=== PATIENT | female | born 1980 | race Caucasian/White ===

== ENCOUNTER 2016-06-09 22:36 | Emergency (ER) | payer OTHER ==
[2016-06-09 22:40] VITALS: BP 139/92
[2016-06-09 23:23] LABS: Hematocrit 46 % (35-47); Hemoglobin 15.4 g/dl (12.0-16.0); Mean Corpuscular HGB Conc 34 g/dl (31-36); Mean Corpuscular Hemoglobin 29 pg (27-31); Mean Corpuscular Volume 87 fL (80-97); Mean Platelet Volume 8 um3 (7.4-10.4); Red Blood Count 5.26 10^6/ul (4.0-5.4); Red Cell Distribution Width 13 % (10.5-15); White Blood Count 12.9 10^3/ul (3.5-10.8)
[2016-06-09 23:27] LABS: Urine Bacteria Absent (Absent); Urine Bilirubin Negative (Negative); Urine Glucose Negative (Negative); Urine Nitrite Negative (Negative)
[2016-06-09] MEDS ORDERED: Nicotine Inhaler* 10 MG AMP INH ONE (23:38)
[2016-06-09 23:40] LABS: ALT 9 U/L (7-52); AST 14 U/L (13-39); Albumin 4.6 g/dL (3.2-5.2); Alkaline Phosphatase 72 U/L (34-104); Anion Gap 8 mmol/L (2-11); Blood Urea Nitrogen 12 mg/dL (6-24); CO2 Carbon Dioxide 24 mmol/L (22-32); Calcium 9.8 mg/dL (8.6-10.3); Chloride 104 mmol/L (101-111); EGFR Non-African American 81.6 (>60); Globulin 3.6 g/dL (2-4); Glucose 114 mg/dL (70-100); Sodium 136 mmol/L (133-145); Total Protein 8.2 g/dL (6.4-8.9)
[2016-06-09 23:42] LABS: Benzodiazepine Urine Screen None Detected (None Detect)
[2016-06-09] MEDS ORDERED: Mouth Piece, Nicotine* 1 EACH CARTRIDGE ONE (23:45)
[2016-06-10 00:06] LABS: Acetaminophen < 15 mcg/mL; Alcohol < 10 mg/dL (<10); Salicylate < 2.50 mg/dL (<30)
[2016-06-10 00:17] LABS: TSH (Thyroid Stimulating Horm) 0.92 mcIU/mL (0.34-5.60)
--- NOTE | 2016-06-10 21:17 | ED ---
Reynaldo Barlow Billy, scribed for Rodolfo Lindsay MD on 06/09/16 at 2352 . Psychiatric Complaint - HPI Summary HPI Summary: Patient is a 36 year-old female coming to [facility] after she was seen putting a sheet around her neck in the skilled nursing cell. She states that she did so in order to get attention from the staff at the skilled nursing because she wanted to leave her cell; she was "going crazy in that cell." She denies any SI or HI at all. She has a history of anxiety, but denies any previous suicidal attempts. Former heroin use. - History Of Current Complaint Chief Complaint: EDMentalHealth Time Seen by Provider: 06/09/16 22:55 Hx Obtained From: Patient Hx Last Menstrual Period: IUD Timing: Constant Severity Currently: None Aggravating Factor(s): Nothing Alleviating Factor(s): Nothing Associated Signs And Symptoms: Positive: Negative Related History: Positive For: Prior Psychiatric Issues Has Suicidal: Denies: Thoughts, With A Plan Has Homicidal: Denies: Thoughts, With A Plan - Allergies/Home Medications Allergies/Adverse Reactions: Allergies Allergy/AdvReac Type Severity Reaction Status Date / Time Pregabalin [From Lyrica] Allergy Severe See Comment Verified 06/09/16 22:42 Celecoxib [From Celebrex] Allergy Intermediate See Comment Verified 06/09/16 22: 42 CI Pigment Blue 63 Allergy Intermediate See Comment Verified 06/09/16 22:42 [From Cymbalta] Duloxetine [From Cymbalta] Allergy Intermediate See Comment Verified 06/09/16 22 :42 Latex Allergy Intermediate HIVES IN Verified 06/09/16 22:42 AREA LATEX TOUCHES Morphine Allergy Mild Unknown Verified 06/09/16 22:42 Reaction Details CILLINS Allergy Mild Fever Uncoded 06/09/16 22:42 PMH/Surg Hx/FS Hx/Imm Hx Endocrine/Hematology History: Denies: Hx Diabetes, Hx Thyroid Disease Cardiovascular History: Reports: Hx Hypertension Denies: Hx Pacemaker/ICD Respiratory History: Reports: Hx Asthma, Other Respiratory Problems/Disorders - sob Denies: Hx Chronic Obstructive Pulmonary Disease (COPD) GI History: Denies: Hx Ulcer History: Denies: Hx Renal Disease Musculoskeletal History: Reports: Other Musculoskeletal History - scoliosis, fibromyalgia Sensory History: Denies: Hx Hearing Aid Neurological History: Denies: Hx Dementia, Hx Seizures Psychiatric History: Reports: Hx Panic Disorder Denies: Hx Substance Abuse - Cancer History Cancer Type, Location and Year: Cervical CA - Surgical History Surgery Procedure, Year, and Place: Cervical CA surgery. *MIRENA 3t* Infectious Disease History: No Infectious Disease History: Denies: Hx Clostridium Difficile, Hx Hepatitis, Hx Human Immunodeficiency Virus (HIV), History Other Infectious Disease, Traveled Outside the [place] in Last 30 Days - Family History Family History: Family history is significant for OCD. - Social History Alcohol Use: None Substance Use Type: Reports: Heroin - formerly, Marijuana, Prescribed Type: Cigarettes Amount Used/How Often: 1/2-1 PPD Review of Systems Negative: Fever, Chills Negative: Erythema Negative: Sore Throat Negative: Chest Pain Negative: Shortness Of Breath, Cough Negative: Vomiting, Nausea Negative: dysuria, hematuria Negative: Myalgia, Edema Negative: Rash All Other Systems Reviewed And Are Negative: Yes Physical Exam - Summary Physical Exam Summary: Constitutional: Well-developed, Well-nourished, Alert. (-) Distressed Skin: Warm, Dry HENT: Normocephalic; Atraumatic Eyes: Conjunctiva normal Neck: Musculoskeletal ROM normal neck. No ligature hopkins. (-) JVD, (-) Stridor, (-) Tracheal deviation Cardio: Rhythm regular, rate normal, Heart sounds normal; Intact distal pulses; The pedal pulses are 2+ and symmetric. Radial pulses are 2+ and symmetric. (-) Murmur Pulmonary/Chest wall: Effort normal. (-) Respiratory distress, (-) Wheezes, (-) Rales Abd: Soft, (-) Tenderness, (-) Distension, (-) Guarding, (-) Rebound Musculoskeletal: (-) Edema Lymph: (-) Cervical adenopathy Neuro: Alert, Oriented x3 Psych: Mood and affect Normal Triage Information Reviewed: Yes Vital Signs On Initial Exam: Initial Vitals Temp Pulse Resp BP Pulse Ox 97.1 F 76 16 139/92 100 06/09/16 22:37 06/09/16 22:37 06/09/16 22:37 06/09/16 22:37 06/09/16 22:37 Vital Signs Reviewed: Yes Diagnostics - Vital Signs Vital Signs Temp Pulse Resp BP Pulse Ox 06/09/16 22:40 97.1 F 72 15 139/92 100 06/09/16 22:37 97.1 F 76 16 139/92 100 - Laboratory Lab Results: Lab Results 06/09/16 06/09/16 06/09/16 Range/Units 23:00 23:10 23:10 WBC 12.9 H (3.5-10.8) 10^3/ul RBC 5.26 (4.0-5.4) 10^6/ul Hgb 15.4 (12.0-16.0) g/dl Hct 46 (35-47) % MCV 87 (80-97) fL MCH 29 (27-31) pg MCHC 34 (31-36) g/dl RDW 13 (10.5-15) % Plt Count 233 (150-450) 10^3/ul MPV 8 (7.4-10.4) um3 Neut % (Auto) 63.4 (38-83) % Lymph % (Auto) 24.9 L (25-47) % Power % (Auto) 9.3 H (1-9) % Eos % (Auto) 1.4 (0-6) % Baso % (Auto) 1.0 (0-2) % Absolute Neuts (auto) 8.2 H (1.5-7.7) 10^3/ul Absolute Lymphs (auto) 3.2 (1.0-4.8) 10^3/ul Absolute Monos (auto) 1.2 H (0-0.8) 10^3/ul Absolute Eos (auto) 0.2 (0-0.6) 10^3/ul Absolute Basos (auto) 0.1 (0-0.2) 10^3/ul Absolute Nucleated RBC 0 10^3/ul Nucleated RBC % 0 Sodium 136 (133-145) mmol/L Potassium 4.0 (3.5-5.0) mmol/L Chloride 104 (101-111) mmol/L Carbon Dioxide 24 (22-32) mmol/L Anion Gap 8 (2-11) mmol/L BUN 12 (6-24) mg/dL Creatinine 0.80 (0.51-0.95) mg/dL Est GFR ( Amer) 105.0 (>60) Est GFR (Non-Af Amer) 81.6 (>60) BUN/Creatinine Ratio 15.0 (8-20) Glucose 114 H (70-100) mg/dL Calcium 9.8 (8.6-10.3) mg/dL Total Bilirubin 0.50 (0.2-1.0) mg/dL AST 14 (13-39) U/L ALT 9 (7-52) U/L Alkaline Phosphatase 72 (34-104) U/L Total Protein 8.2 (6.4-8.9) g/dL Albumin 4.6 (3.2-5.2) g/dL Globulin 3.6 (2-4) g/dL Albumin/Globulin Ratio 1.3 (1-3) TSH Pending Urine Color Yellow Urine Appearance Cloudy Urine pH 6.0 (5-9) Ur Specific [place] 1.014 (1.010-1.030) Urine Protein Negative (Negative) Urine Ketones Negative (Negative) Urine Blood Negative (Negative) Urine Nitrate Negative (Negative) Urine Bilirubin Negative (Negative) Urine Urobilinogen Negative (Negative) Ur Leukocyte Esterase 3+ H (Negative) Urine WBC (Auto) 2+(11-20/hpf) H (Absent) Urine RBC (Auto) 2+(6-10/hpf) H (Absent) Ur Squamous Epith Cells Present H (Absent) Urine Bacteria Absent (Absent) Urine Glucose Negative (Negative) Salicylates Pending Urine Opiates Screen (None Detect) Acetaminophen Pending Ur Barbiturates Screen (None Detect) Ur Phencyclidine Scrn (None Detect) Ur Amphetamines Screen (None Detect) U Benzodiazepines Scrn (None Detect) Urine Cocaine Screen (None Detect) U Cannabinoids Screen (None Detect) Serum Alcohol Pending 06/09/16 Range/Units 23:10 WBC (3.5-10.8) 10^3/ul RBC (4.0-5.4) 10^6/ul Hgb (12.0-16.0) g/dl Hct (35-47) % MCV (80-97) fL MCH (27-31) pg MCHC (31-36) g/dl RDW (10.5-15) % Plt Count (150-450) 10^3/ul MPV (7.4-10.4) um3 Neut % (Auto) (38-83) % Lymph % (Auto) (25-47) % Power % (Auto) (1-9) % Eos % (Auto) (0-6) % Baso % (Auto) (0-2) % Absolute Neuts (auto) (1.5-7.7) 10^3/ul Absolute Lymphs (auto) (1.0-4.8) 10^3/ul Absolute Monos (auto) (0-0.8) 10^3/ul Absolute Eos (auto) (0-0.6) 10^3/ul Absolute Basos (auto) (0-0.2) 10^3/ul Absolute Nucleated RBC 10^3/ul Nucleated RBC % Sodium (133-145) mmol/L Potassium (3.5-5.0) mmol/L Chloride (101-111) mmol/L Carbon Dioxide (22-32) mmol/L Anion Gap (2-11) mmol/L BUN (6-24) mg/dL Creatinine (0.51-0.95) mg/dL Est GFR ( Amer) (>60) Est GFR (Non-Af Amer) (>60) BUN/Creatinine Ratio (8-20) Glucose (70-100) mg/dL Calcium (8.6-10.3) mg/dL Total Bilirubin (0.2-1.0) mg/dL AST (13-39) U/L ALT (7-52) U/L Alkaline Phosphatase (34-104) U/L Total Protein (6.4-8.9) g/dL Albumin (3.2-5.2) g/dL Globulin (2-4) g/dL Albumin/Globulin Ratio (1-3) TSH Urine Color Urine Appearance Urine pH (5-9) Ur Specific Charlotte (1.010-1.030) Urine Protein (Negative) Urine Ketones (Negative) Urine Blood (Negative) Urine Nitrate (Negative) Urine Bilirubin (Negative) Urine Urobilinogen (Negative) Ur Leukocyte Esterase (Negative) Urine WBC (Auto) (Absent) Urine RBC (Auto) (Absent) Ur Squamous Epith Cells (Absent) Urine Bacteria (Absent) Urine Glucose (Negative) Salicylates Urine Opiates Screen None detected (None Detect) Acetaminophen Ur Barbiturates Screen None detected (None Detect) Ur Phencyclidine Scrn None detected (None Detect) Ur Amphetamines Screen None detected (None Detect) U Benzodiazepines Scrn None detected (None Detect) Urine Cocaine Screen None detected (None Detect) U Cannabinoids Screen None detected (None Detect) Serum Alcohol Result Diagrams: 06/09/16 23:10 06/09/16 23:10 Lab Statement: Any lab studies that have been ordered have been reviewed, and results considered in the medical decision making process. Course/Dx - Course Assessment/Plan: Medically clear for MHE at 2351. - Differential Dx/Clinical Impression Provider Diagnosis: Malingering, Adjustment disorder Discharge - Discharge Plan Condition: Fair Disposition: HOME Referrals: Aracelis Correa MD [Primary Care Provider] - The documentation as recorded by the Reynaldo copeland Billy accurately reflects the service I personally performed and the decisions made by , Rodolfo Lindsay MD.
== END 2016-06-10 02:34 | disposition home or self-care (01) ==
LOC: ED 22:36
DX: F43.20 Adjustment disorder, unspecified (principal); Z76.5 Malingerer [conscious simulation]
CPT/HCPCS: 36415; 80053; 80307; 80320; 80329; 81003; 81015; 84443; 85025; 87086; 99285; A9270-GY; G0480

== ENCOUNTER 2016-06-20 23:37 | Emergency (ER) | payer OTHER ==
[2016-06-21] MEDS ORDERED: Nicotine Inhaler* 10 MG AMP INH ONE (01:47)
[2016-06-21] MEDS ORDERED: Mouth Piece, Nicotine* 1 EACH CARTRIDGE INH ONE (01:47)
[2016-06-21] MEDS ORDERED: Ibuprofen TAB* 600 MG PO ONE (01:47)
[2016-06-21] MEDS ORDERED: LoraTADine TAB(NF) 10 MG TAB (AUTOSUB CETIRIRIZINE) PO ONE (01:48)
--- NOTE | 2016-06-21 02:44 | ED ---
Throat Pain/Nasal Congestion - HPI Summary HPI Summary: Patient arrives from [facility] with CC of left ear pain and fullness and throat pain x 1 week. She states the onset was at [facility] and feels it is allergy related. She denies previous EENT problems or history. She denies other environmental or seasonal allergies. She takes gabapentin daily and feels she needs an allergy medication as well. Denies SOB, chest pressure or pain. She is also requesting a nicotine puffer. - History of Current Complaint Chief Complaint: EDThroatPain Time Seen by Provider: 06/21/16 01:22 Hx Obtained From: Patient Onset/Duration: Sudden Onset Severity: Moderate Associated Signs And Symptoms: Positive: Negative - Epiglottits Risk Factors Epiglottis Risk Factors: Negative - Allergies/Home Medications Allergies/Adverse Reactions: Allergies Allergy/AdvReac Type Severity Reaction Status Date / Time Pregabalin [From Lyrica] Allergy Severe See Comment Verified 06/21/16 00:00 Celecoxib [From Celebrex] Allergy Intermediate See Comment Verified 06/21/16 00: 00 CI Pigment Blue 63 Allergy Intermediate See Comment Verified 06/21/16 00:00 [From Cymbalta] Duloxetine [From Cymbalta] Allergy Intermediate See Comment Verified 06/21/16 00 :00 Latex Allergy Intermediate HIVES IN Verified 06/21/16 00:00 AREA LATEX TOUCHES Morphine Allergy Mild Unknown Verified 06/21/16 00:00 Reaction Details CILLINS Allergy Mild Fever Uncoded 06/09/16 22:42 PMH/Surg Hx/FS Hx/Imm Hx Previously Healthy: Yes Endocrine/Hematology History: Denies: Hx Diabetes, Hx Thyroid Disease Cardiovascular History: Reports: Hx Hypertension Denies: Hx Pacemaker/ICD Respiratory History: Reports: Hx Asthma, Other Respiratory Problems/Disorders - sob Denies: Hx Chronic Obstructive Pulmonary Disease (COPD) GI History: Denies: Hx Ulcer History: Denies: Hx Renal Disease Musculoskeletal History: Reports: Other Musculoskeletal History - scoliosis, fibromyalgia Sensory History: Denies: Hx Hearing Aid Neurological History: Denies: Hx Dementia, Hx Seizures Psychiatric History: Reports: Hx Panic Disorder Denies: Hx Eating Disorder, Hx of Violent Episodes Against Others, Hx Substance Abuse - Cancer History Cancer Type, Location and Year: Cervical CA - Surgical History Surgery Procedure, Year, and Place: Cervical CA surgery. *MIRENA 3t* - Immunization History Hx Pertussis Vaccination: No Immunizations Up to Date: No Infectious Disease History: No Infectious Disease History: Denies: Hx Clostridium Difficile, Hx Hepatitis, Hx Human Immunodeficiency Virus (HIV), History Other Infectious Disease, Traveled Outside the [place] in Last 30 Days - Family History Family History: Family history is significant for OCD. - Social History Alcohol Use: None Substance Use Type: Reports: Heroin, Marijuana, Prescribed Smoking Status (MU): Current Every Day Smoker Type: Cigarettes Amount Used/How Often: 1/2-1 PPD Review of Systems Constitutional: Negative Eyes: Negative Positive: Sore Throat, Ear Ache Cardiovascular: Negative Respiratory: Negative Positive: no symptoms reported, see HPI Musculoskeletal: Negative Skin: Negative Psychological: Normal All Other Systems Reviewed And Are Negative: Yes Physical Exam Triage Information Reviewed: Yes Vital Signs On Initial Exam: Initial Vitals Temp Pulse Resp BP Pulse Ox 98.3 F 88 18 128/75 98 06/20/16 23:58 06/20/16 23:58 06/20/16 23:58 06/20/16 23:58 06/20/16 23:58 Completion Of Physical Exam Limited Due To: Dementia Appearance: Positive: Well-Appearing, Well-Nourished Skin: Positive: Warm, Skin Color Reflects Adequate Perfusion Head/Face: Positive: Normal Head/Face Inspection Eyes: Positive: EOMI, PETTY, Conjunctiva Clear ENT: Positive: Pharynx normal, TMs normal Neck: Positive: Supple, No Lymphadenopathy Respiratory/Lung Sounds: Positive: Clear to Auscultation, Breath Sounds Present Cardiovascular: Positive: Normal, RRR Musculoskeletal: Positive: Normal, Strength/ROM Intact Neurological: Positive: Normal, Sensory/Motor Intact, Alert, Oriented to Person Place, Time, Speech Normal Psychiatric: Positive: Normal AVPU Assessment: Alert - Rubi Coma Scale Best Eye Response: 4 - Spontaneous Best Motor Response: 6 - Obeys Commands Best Verbal Response: 5 - Oriented Diagnostics - Vital Signs Vital Signs Temp Pulse Resp BP Pulse Ox 06/20/16 23:58 98.3 F 88 18 128/75 98 - Laboratory Lab Results: Lab Results 06/20/16 Range/Units 23:15 Group A Strep Rapid Negative (Negative) Lab Statement: Any lab studies that have been ordered have been reviewed, and results considered in the medical decision making process. EENT Course/Dx - Course Course Of Treatment: Patient given zyrtec and ibuprofen and nicotine puffer. Patient prescribed ibuprofen and zyrtec at [facility]. Physical exam benign. - Differential Diagnoses Differential Diagnoses: Otitis Externa, Otitis Media, Pain of Unknown Etiology, Pharyngitis - Diagnoses Provider Diagnoses: Ear pain Discharge - Discharge Plan Condition: Stable Disposition: HOME Prescriptions: Cetirizine* [ZyrTEC 10 MG TAB*] 10 mg PO DAILY #15 tab MDD 1 Ibuprofen TAB* [Motrin TAB* 600 MG] 600 mg PO Q8H PRN #21 tab MDD 3 PRN Reason: Pain Patient Education Materials: Cetirizine (By mouth) Referrals: No Primary Care Phys,NOPCP [Primary Care Provider] - Additional Instructions: Take Ibuprofen 600mg three times daily as needed for pain Certrizine once daily for 15 days.
[2016-06-21] MEDS ORDERED: diPHENhydraMINE PO* 25 MG PO ONE (02:54)
[2016-06-21] MEDS ORDERED: diPHENhydraMINE PO* 25 MG ONE (02:55)
[2016-06-21 03:16] VITALS: BP 125/70
[2016-06-21] MEDS ORDERED: Cetirizine* 10 MG TAB PO SCH (09:00)
== END 2016-06-21 03:00 | disposition home or self-care (01) ==
LOC: ED 23:37
DX: H92.02 Otalgia, left ear (principal); I10 Essential (primary) hypertension; J45.909 Unspecified asthma, uncomplicated; F41.0 Panic disorder [episodic paroxysmal anxiety]; F17.210 Nicotine dependence, cigarettes, uncomplicated
CPT/HCPCS: 87651; 99282; A9270-GY

== ENCOUNTER 2016-09-21 09:51 | Emergency (ER) | payer OTHER | END 2016-09-21 11:15 | disposition left against medical advice (07) | LOC: UCEAST 09:51 | DX: H92.09 Otalgia, unspecified ear (principal); Z53.21 Procedure and treatment not carried out due to patient leaving prior to being seen by health care provider ==

== ENCOUNTER 2016-12-18 12:14 | Emergency (ER) | payer OTHER ==
[2016-12-18] MEDS ORDERED: Ibuprofen TAB* 400 MG PO ONE (14:46)
--- NOTE | 2016-12-18 14:52 | RAD ---
Indication: Right ankle injury. 3 views of the right ankle demonstrates no fracture. Ankle mortise is intact. IMPRESSION: No fracture of the right ankle is noted.
--- NOTE | 2016-12-18 14:54 | RAD ---
INDICATION: Right foot injury COMPARISON: None TECHNIQUE: AP, lateral, and oblique views were obtained. FINDINGS: There are cortical irregularities of the first cuneiform suspicious for a fracture. Suggest CT imaging. The bony structures, joint spaces, and soft tissues are otherwise normal. IMPRESSION: POSSIBLE FRACTURE OF THE FIRST CUNEIFORM. SUGGEST CT IMAGING.
[2016-12-18 14:58] VITALS: BP 153/97
--- NOTE | 2016-12-18 15:32 | RAD ---
INDICATION: Possible foot fracture COMPARISON: Right foot December 18, 2016 TECHNIQUE: 56 noncontrast axial scans of the foot were acquired followed by coronal and sagittal reconstructions. FINDINGS: There is no acute fracture. There is mild contour irregularity involving the first cuneiform which is developmental and not related to any acute injury. There are probable ossicles about the tarsal navicular. The articular relationships and soft tissues are normal. IMPRESSION: NO ACUTE FRACTURE.
--- NOTE | 2016-12-18 16:35 | UC ---
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 - History of Current Complaint Chief Complaint: UCTrauma Stated Complaint: R ANKLE PAIN Time Seen by Provider: 12/18/16 13:42 Hx Obtained From: Patient, Family/[employer] Hx Last Menstrual Period: no periods - states mirena Onset/Duration: Sudden Onset, Lasting Hours Severity Initially: Mild Severity Currently: Mild Aggravating Factor(s): Standing Able to Bear Weight: No - Risk Factors Gout Risk Factors: Negative DVT Risk Factors: Negative Septic Arthritis Risk Factor: Negative - Allergies/Home Medications Allergies/Adverse Reactions: Allergies Allergy/AdvReac Type Severity Reaction Status Date / Time Pregabalin [From Lyrica] Allergy Severe See Comment Verified 12/18/16 12:49 Celecoxib [From Celebrex] Allergy Intermediate See Comment Verified 12/18/16 12: 49 CI Pigment Blue 63 Allergy Intermediate See Comment Verified 12/18/16 12:49 [From Cymbalta] Duloxetine [From Cymbalta] Allergy Intermediate See Comment Verified 12/18/16 12 :49 Latex Allergy Intermediate HIVES IN Verified 12/18/16 12:49 AREA LATEX TOUCHES Morphine Allergy Mild Unknown Verified 12/18/16 12:49 Reaction Details CILLINS Allergy Mild Fever Uncoded 12/18/16 12:49 Home Medications: Home Medications Amlodipine Besylate [Norvasc 5 mg tab] 5 mg PO DAILY 12/18/16 [History Confirmed 12/18/16] Clonidine HCl [Catapres 0.1 MG TAB] 0.1 mg PO PRN 12/18/16 [History] Gabapentin CAP(*) [Neurontin 300 CAP(*)] 600 mg PO TID 12/18/16 [History Confirmed 12/18/16] Metaxalone TAB* [Skelaxin TAB*] 800 mg PO TID 12/18/16 [History Confirmed ] Omeprazole CAP* [Prilosec CAP* 20 MG] 20 mg PO DAILY 12/18/16 [History Confirmed 12/18/16] Quetiapine Fumarate [Quetiapine Fumarate ER] 50 mg PO 12/18/16 [History] PMH/Surg Hx/FS Hx/Imm Hx Previously Healthy: Yes - Surgical History Surgical History: Yes Surgery Procedure, Year, and Place: Cervical CA surgery. *MIRENA 3t* - Family History Known Family History: Negative: Other - NO JOINT LAXITY Family History: Family history is significant for OCD. - Social History Occupation: Employed Full-time Lives: With Family Alcohol Use: None Substance Use Type: None Smoking Status (MU): Current Every Day Smoker Type: Cigarettes Amount Used/How Often: 1/2-1 PPD Cessation Counseling: Patient Advised to Stop - Immunization History Most Recent Tetanus Shot: 2008 Review of Systems Constitutional: Negative Skin: Negative Eyes: Negative ENT: Negative Respiratory: Negative Cardiovascular: Negative Gastrointestinal: Negative Genitourinary: Negative Motor: Negative Neurovascular: Negative Musculoskeletal: Arthralgia, Decreased ROM, Edema, Myalgia Neurological: Negative Psychological: Negative Is Patient Immunocompromised?: No All Other Systems Reviewed And Are Negative: Yes Physical Exam Triage Information Reviewed: Yes Appearance: Well-Appearing, No Pain Distress, Well-Nourished Vital Signs: Initial Vital Signs Temp 98.5 F 12/18/16 12:53 Pulse 92 12/18/16 12:53 Resp 18 12/18/16 12:53 BP 149/83 12/18/16 12:53 Pulse Ox 99 12/18/16 12:53 Vital Signs Reviewed: Yes Eye Exam: Normal ENT Exam: Normal ENT: Positive: Normal ENT inspection, Hearing grossly normal, TMs normal Dental Exam: Normal Neck exam: Normal Neck: Positive: Supple, Nontender, No Lymphadenopathy Respiratory Exam: Normal Respiratory: Positive: Chest non-tender, Lungs clear, Normal breath sounds, No respiratory distress, No accessory muscle use Cardiovascular Exam: Normal Cardiovascular: Positive: RRR, No Murmur, Pulses Normal Abdominal Exam: Normal Abdomen Description: Positive: Nontender, No Organomegaly Musculoskeletal: Positive: Strength Limited @ - RIGHT ANKLE, ROM Limited @ - RIGHT ANKLE, Edema @ - RIGHT ANKLE/RIGHT HEEL Neurological Exam: Normal Psychological Exam: Normal Skin Exam: Normal Lower Extremity Course/Dx - Differential Dx/Diagnosis Differential Diagnosis/HQI/PQRI: Fracture (Closed), Fracture (Open), Sprain, Strain Provider Diagnoses: RIGHT ANKLE SPRAIN; RIGHT FOOT CONTUSION/SPRAIN Discharge - Discharge Plan Condition: Stable Disposition: HOME Patient Education Materials: Ankle Sprain (ED), Foot Contusion (ED), Foot Sprain (ED) Referrals: [facility] [Outside] Phyllis Bruno MD [Medical Doctor] - Bonnie WALSH,Keya Pfeiffer [Primary Care Provider] - Additional Instructions: PHYSICAL THERAPY REFERRAL: You have been prescribed physical therapy. Treatments may include stretching, exercise, application of heat or cold, and other modalities. After an injury, PT can reduce swelling and pain. In recovery, PT is used to restore mobility and strength. Your specific treatment goals are: ___X__ Reduction of Swelling (EGS, US, ice as needed) __X___ Pain Reduction (EGS, US, ice as needed) ___X__ TENS Pack Fitting and Instruction Wound Hydrotherapy ___X__ Preservation of Mobility ___X__ Restorationism of Mobility ___X__ Strength Restorationism ___X__ Work or Sports Hardening This instruction sheet also serves as your PHYSICAL THERAPY REFERRAL! Please take it with you to the therapist, so he/she will be aware of your diagnosis and treatment plan. You may see the physical therapist of your choice for these treatments, but may wish to check with your insurance to be sure the provider you select is covered. It's important to see the doctor to whom you have been referred for follow up.
== END 2016-12-18 16:15 | disposition home or self-care (01) ==
LOC: UCEAST 12:14
DX: S93.401A Sprain of unspecified ligament of right ankle, initial encounter (principal); F17.210 Nicotine dependence, cigarettes, uncomplicated; W01.0XXA Fall on same level from slipping, tripping and stumbling without subsequent striking against object, initial encounter; Y92.9 Unspecified place or not applicable; S93.601A Unspecified sprain of right foot, initial encounter; S90.31XA Contusion of right foot, initial encounter
CPT/HCPCS: 99214; A9270-GY; G0463

== ENCOUNTER 2017-01-11 18:39 | Emergency (ER) | payer OTHER ==
[2017-01-11 19:28] VITALS: BP 127/72
== END 2017-01-11 21:48 | disposition left against medical advice (07) ==
LOC: ED 18:39
DX: M54.9 Dorsalgia, unspecified (principal); Z53.21 Procedure and treatment not carried out due to patient leaving prior to being seen by health care provider
CPT/HCPCS: 93005

== ENCOUNTER 2018-07-04 16:42 | Emergency (ER) | payer SELFPAY ==
[2018-07-04 20:21] LABS: ABS Basophils 0.1 10^3/ul (0-0.2); ABS Eosinophils 0.2 10^3/ul (0-0.6); ABS Lymphocytes 3.7 10^3/ul (1.0-4.8); ABS Monocytes 0.8 10^3/ul (0-0.8); ABS Neutrophils 7.5 10^3/ul (1.5-7.7); Hematocrit 46 % (35-47); Hemoglobin 15.9 g/dL (12.0-16.0); Lymphocyte % 29.9 %; Mean Corpuscular HGB Conc 35 g/dL (31-36); Mean Corpuscular Hemoglobin 31 pg (27-31); Mean Corpuscular Volume 89 fL (80-97); Mean Platelet Volume 7.5 fL (7.4-10.4); Nucleated Red Blood Cells % 0.1; Platelet Count 292 10^3/uL (150-450); Red Blood Count 5.14 10^6 /uL (3.70-4.87); Red Cell Distribution Width 13 % (10.5-15); White Blood Count 12.2 10^3/uL (3.5-10.8)
[2018-07-04 20:41] LABS: ALT 15 U/L (7-52); Albumin/Globulin Ratio 1.7 (1-3); Alkaline Phosphatase 78 U/L (34-104); BUN/Creatinine Ratio 10.4 (8-20); Blood Urea Nitrogen 10 mg/dL (6-24); C Reactive Protein 11.52 mg/L (<8.01); CO2 Carbon Dioxide 24 mmol/L (22-32); Calcium 9.8 mg/dL (8.6-10.3); Chloride 103 mmol/L (101-111); EGFR African American 79.1 (>60); EGFR Non-African American 65.4 (>60); Glucose 94 mg/dL (70-100); Sodium 135 mmol/L (135-145)
[2018-07-04 20:47] LABS: HCG Pregnancy < 0.60 mIU/mL
[2018-07-04 20:57] LABS: Anion Gap 8 mmol/L (2-11)
[2018-07-04] MEDS ORDERED: NS 0.9% 1000 ML** 1,000 ML IV ONE (21:33)
[2018-07-04] MEDS ORDERED: Morphine 4 MG/ML VIAL (1 ml) 4 MG/ML VIAL IV ONE (21:33)
[2018-07-04] MEDS ORDERED: Metoclopramide IV* 5 MG/ML 2 ML VIAL IV SLOW PU ONE (21:33)
[2018-07-04 21:38] LABS: Urine Appearance Cloudy; Urine Bacteria Absent (Absent); Urine Bilirubin Negative (Negative); Urine Blood 1+ (Negative); Urine Color Yellow; Urine Glucose Negative (Negative); Urine Ketones Trace (Negative); Urine Nitrite Negative (Negative); Urine Protein Negative (Negative); Urine Red Blood Cell Trace(0-2/hpf) (Absent); Urine Squamous Epithelial Cell Present (Absent); Urine Urobilinogen Negative (Negative); Urine White Blood Cell 1+(6-10/hpf) (Absent)
[2018-07-04] MEDS ORDERED: Iohexol 300* (CONTRAST) 10 ML SDV IV ONE (22:00)
--- NOTE | 2018-07-04 22:03 | ED ---
Abdominal Pain/Female - HPI Summary HPI Summary: The patient is a 38 year old female who [facility] with a chief complaint of abd pain. The patient describes the abd pain as having occurred last night (07/03/18). The pain is stated to be at the right upper quadrant. As per triage, patient reports of N/V that began last night (07/03/18) as well. Symptoms are aggravated by nothing. Symptoms are alleviated by nothing. The pain is rated to be 2/10 in severity. The pain began subsequently after the patient had eaten dinner. - History of Current Complaint Chief Complaint: EDAbdPain Stated Complaint: ABD PAIN PER PT Time Seen by Provider: 07/04/18 21:28 Hx Obtained From: Patient Hx Last Menstrual Period: no periods - states mirena Onset/Duration: Sudden Onset, Lasting Days - since Last night (07/03/18), Still Present Severity Initially: Mild Severity Currently: Mild Pain Intensity: 2 Pain Scale Used: 0-10 Numeric Location: Discrete At: RUQ Aggravating Factor(s): Nothing Alleviating Factor(s): Nothing Associated Signs and Symptoms: Positive: Nausea, Vomiting Allergies/Adverse Reactions: Allergies Allergy/AdvReac Type Severity Reaction Status Date / Time celecoxib [From Celebrex] Allergy See Comment Verified 07/04/18 22:48 duloxetine [From Cymbalta] Allergy See Comment Verified 07/04/18 22:48 latex Allergy Hives Verified 07/04/18 22:48 morphine Allergy Unknown Verified 07/04/18 22:48 Reaction Details pregabalin [From Lyrica] Allergy See Comment Verified 07/04/18 22:48 CILLINS Allergy Mild Fever Uncoded 07/04/18 22:48 PMH/Surg Hx/FS Hx/Imm Hx Endocrine/Hematology History: Denies: Hx Diabetes, Hx Thyroid Disease Cardiovascular History: Reports: Hx Hypertension Denies: Hx Pacemaker/ICD Respiratory History: Reports: Hx Asthma, Other Respiratory Problems/Disorders - sob Denies: Hx Chronic Obstructive Pulmonary Disease (COPD) GI History: Denies: Hx Ulcer History: Denies: Hx Renal Disease Musculoskeletal History: Reports: Other Musculoskeletal History - scoliosis, fibromyalgia Sensory History: Denies: Hx Hearing Aid Neurological History: Denies: Hx Dementia, Hx Seizures Psychiatric History: Reports: Hx Panic Disorder Denies: Hx Eating Disorder, Hx of Violent Episodes Against Others, Hx Substance Abuse - Cancer History Cancer Type, Location and Year: Cervical CA - Surgical History Surgery Procedure, Year, and Place: Cervical CA surgery. *MIRENA 3t* Infectious Disease History: No Infectious Disease History: Denies: Hx Clostridium Difficile, Hx Hepatitis, Hx Human Immunodeficiency Virus (HIV), History Other Infectious Disease, Traveled Outside the [place] in Last 30 Days - Family History Known Family History: Negative: Other - NO JOINT LAXITY Family History: Family history is significant for OCD. - Social History Alcohol Use: Rare Substance Use Type: Reports: None Smoking Status (MU): Heavy Every Day Tobacco Smoker Type: Cigarettes Amount Used/How Often: 1/2-1 PPD Review of Systems Constitutional: Negative Eyes: Negative ENT: Negative Cardiovascular: Negative Respiratory: Negative Positive: Abdominal Pain, Vomiting, Nausea Genitourinary: Negative Musculoskeletal: Negative Skin: Negative Neurological: Negative Psychological: Normal All Other Systems Reviewed And Are Negative: Yes Physical Exam - Summary Physical Exam Summary: VITAL SIGNS: Reviewed. GENERAL: Patient is a well-developed and nourished (FEMALE) who is lying comfortable in the stretcher. Patient is not in any acute respiratory distress. HEAD AND FACE: No signs of trauma. No ecchymosis, hematomas or skull depressions. No sinus tenderness. EYES: PERRLA, EOMI x 2, No injected conjunctiva, no nystagmus. EARS: Hearing grossly intact. Ear canals and tympanic membranes are within normal limits. MOUTH: Oropharynx within normal limits. NECK: Supple, trachea is midline, no adenopathy, no JVD, no carotid bruit, no c- spine tenderness, neck with full ROM CHEST: Symmetric, no tenderness at palpation LUNGS: Clear to auscultation bilaterally. No wheezing or crackles. CVS: Regular rate and rhythm, S1 and S2 present, no murmurs or gallops appreciated. ABDOMEN: RUQ quadrant tenderness. EXTREMITIES: FROM in all major joints, no edema, no cyanosis or clubbing. NEURO: Alert and oriented x 3. No acute neurological deficits. Speech is normal and follows commands. SKIN: Dry and warm Triage Information Reviewed: Yes Vital Signs On Initial Exam: Initial Vitals Temp Pulse Resp BP Pulse Ox 97.3 F 100 18 152/100 97 07/04/18 16:43 07/04/18 16:43 07/04/18 16:43 07/04/18 16:43 07/04/18 16:43 Vital Signs Reviewed: Yes Diagnostics - Vital Signs Vital Signs Temp Pulse Resp BP Pulse Ox 07/04/18 18:11 98.3 F 86 18 161/117 98 07/04/18 16:43 97.3 F 100 18 152/100 97 - Laboratory Lab Results: Lab Results 07/04/18 07/04/18 07/04/18 Range/Units 19:18 19:18 19:18 WBC 12.2 H (3.5-10.8) 10^3/uL RBC 5.14 H (3.70-4.87) 10^6 /uL Hgb 15.9 (12.0-16.0) g/dL Hct 46 (35-47) % MCV 89 (80-97) fL MCH 31 (27-31) pg MCHC 35 (31-36) g/dL RDW 13 (10.5-15) % Plt Count 292 (150-450) 10^3/uL MPV 7.5 (7.4-10.4) fL Neut % (Auto) 61.0 % Lymph % (Auto) 29.9 % [place] % (Auto) 6.2 % Eos % (Auto) 2.0 % Baso % (Auto) 0.9 % Absolute Neuts (auto) 7.5 (1.5-7.7) 10^3/ul Absolute Lymphs (auto) 3.7 (1.0-4.8) 10^3/ul Absolute Monos (auto) 0.8 (0-0.8) 10^3/ul Absolute Eos (auto) 0.2 (0-0.6) 10^3/ul Absolute Basos (auto) 0.1 (0-0.2) 10^3/ul Absolute Nucleated RBC 0.0 10^3/ul Nucleated RBC % 0.1 Sodium 135 (135-145) mmol/L Potassium TNP Chloride 103 (101-111) mmol/L Carbon Dioxide 24 (22-32) mmol/L Anion Gap 8 (2-11) mmol/L BUN 10 (6-24) mg/dL Creatinine 0.96 H (0.51-0.95) mg/dL Est GFR ( Amer) 79.1 (>60) Est GFR (Non-Af Amer) 65.4 (>60) BUN/Creatinine Ratio 10.4 (8-20) Glucose 94 (70-100) mg/dL Lactic Acid 0.6 (0.5-2.0) mmol/L Calcium 9.8 (8.6-10.3) mg/dL Total Bilirubin 0.60 (0.2-1.0) mg/dL AST TNP ALT 15 (7-52) U/L Alkaline Phosphatase 78 (34-104) U/L C-Reactive Protein 11.52 H (<8.01) mg/L Total Protein 8.0 (6.4-8.9) g/dL Albumin 5.0 (3.2-5.2) g/dL Globulin 3.0 (2-4) g/dL Albumin/Globulin Ratio 1.7 (1-3) Lipase 12 (11.0-82.0) U/L Beta HCG, Quant < 0.60 mIU/mL Urine Color Urine Appearance Urine pH (5-9) Ur Specific [place] (1.010-1.030) Urine Protein (Negative) Urine Ketones (Negative) Urine Blood (Negative) Urine Nitrate (Negative) Urine Bilirubin (Negative) Urine Urobilinogen (Negative) Ur Leukocyte Esterase (Negative) Urine WBC (Auto) (Absent) Urine RBC (Auto) (Absent) Ur Squamous Epith Cells (Absent) Urine Bacteria (Absent) Urine Glucose (Negative) 07/04/18 Range/Units 21:23 WBC (3.5-10.8) 10^3/uL RBC (3.70-4.87) 10^6 /uL Hgb (12.0-16.0) g/dL Hct (35-47) % MCV (80-97) fL MCH (27-31) pg MCHC (31-36) g/dL RDW (10.5-15) % Plt Count (150-450) 10^3/uL MPV (7.4-10.4) fL Neut % (Auto) % Lymph % (Auto) % [place] % (Auto) % Eos % (Auto) % Baso % (Auto) % Absolute Neuts (auto) (1.5-7.7) 10^3/ul Absolute Lymphs (auto) (1.0-4.8) 10^3/ul Absolute Monos (auto) (0-0.8) 10^3/ul Absolute Eos (auto) (0-0.6) 10^3/ul Absolute Basos (auto) (0-0.2) 10^3/ul Absolute Nucleated RBC 10^3/ul Nucleated RBC % Sodium (135-145) mmol/L Potassium Chloride (101-111) mmol/L Carbon Dioxide (22-32) mmol/L Anion Gap (2-11) mmol/L BUN (6-24) mg/dL Creatinine (0.51-0.95) mg/dL Est GFR ( Amer) (>60) Est GFR (Non-Af Amer) (>60) BUN/Creatinine Ratio (8-20) Glucose (70-100) mg/dL Lactic Acid (0.5-2.0) mmol/L Calcium (8.6-10.3) mg/dL Total Bilirubin (0.2-1.0) mg/dL AST ALT (7-52) U/L Alkaline Phosphatase (34-104) U/L C-Reactive Protein (<8.01) mg/L Total Protein (6.4-8.9) g/dL Albumin (3.2-5.2) g/dL Globulin (2-4) g/dL Albumin/Globulin Ratio (1-3) Lipase (11.0-82.0) U/L Beta HCG, Quant mIU/mL Urine Color Yellow Urine Appearance Cloudy Urine pH 5.0 (5-9) Ur Specific [place] 1.010 (1.010-1.030) Urine Protein Negative (Negative) Urine Ketones Trace A (Negative) Urine Blood 1+ A (Negative) Urine Nitrate Negative (Negative) Urine Bilirubin Negative (Negative) Urine Urobilinogen Negative (Negative) Ur Leukocyte Esterase 1+ A (Negative) Urine WBC (Auto) 1+(6-10/hpf) A (Absent) Urine RBC (Auto) Trace(0-2/hpf) (Absent) Ur Squamous Epith Cells Present A (Absent) Urine Bacteria Absent (Absent) Urine Glucose Negative (Negative) Result Diagrams: 07/04/18 19:18 07/04/18 21:44 Lab Statement: Any lab studies that have been ordered have been reviewed, and results considered in the medical decision making process. - CT CT A/P CT Interpretation Completed By: Radiologist Summary of CT Findings: CT A/P reveals as per radiologist report 1. There is a simple appearing left ovarian cyst measuring 2.0 cm. 2. There is abnormal wall thickening involving the terminal and distal ileum. with wall edema suspicious for infectious or inflammatory terminal and distal. ileitis. The ED Physician has reviewed this radiology report. - Ultrasound No standard instances Ultrasound Interpretation Completed By: Radiologist Summary of Ultrasound Findings: Gallbladder US reveals as per radiologist report No acute sonographic pathology. The ED Physician has reviewed this radiology report. Abdominal Pain Fem Course/Dx - Course Course Of Treatment: The patient is a 38 year old female who is presenting to the [facility] with a chief complaint of RUQ abd pain that began last night (07/03/18) . Other symptoms reported include N/V. In the [facility], Gallbladder US and CT A/P were taken. The lab results show an elevated WBC count. Upon reviewing the results of the CT A/P in which ileitis is discussed by the radiologist, the patient will be D/C home with a dx of ileitis. She is agreeable with this plan. - Diagnoses Provider Diagnoses: Ileitis Discharge - Sign-Out/Discharge Documenting (check all that apply): Patient Departure Patient Received Moderate/Deep Sedation with Procedure: No - Discharge Plan Condition: Stable Disposition: HOME Prescriptions: Ibuprofen TAB* [Motrin TAB* 800 MG] 800 mg PO Q6H PRN #30 tab PRN Reason: Pain Levofloxacin TAB* [Levaquin TAB*] 500 mg PO DAILY #7 tab metroNIDAZOLE [Flagyl 500 MG TAB] 500 mg PO TID #20 tab Referrals: Bonnie WALSH,Keya Pfeiffer [Primary Care Provider] - - Attestation Statements Document Initiated by Scribe: Yes Documenting Scribe: Nelson Villalobos Provider For Whom Scribe is Documenting (Include Credential): Dr. Christine Rosaibterry Attestation: Nelson Barlow, deejay for Dr. Nettie Yen on 07/05/18 at 0026. Status of Scribe Document: Ready
[2018-07-04 22:06] LABS: Potassium Redraw 3.4 mmol/L (3.5-5.0)
[2018-07-05] MEDS ORDERED: Levofloxacin TAB* 500 MG PO ONE (00:23)
[2018-07-05] MEDS ORDERED: metroNIDAZOLE TAB* 250 MG PO ONE (00:23)
[2018-07-05 00:45] VITALS: BP 144/90
== END 2018-07-05 00:45 | disposition home or self-care (01) ==
LOC: ED 16:42
DX: K52.9 Noninfective gastroenteritis and colitis, unspecified (principal); Z88.5 Allergy status to narcotic agent; Z88.0 Allergy status to penicillin; Z91.040 Latex allergy status
CPT/HCPCS: 36415; 74177; 76705; 80053; 81003; 81015; 83605; 83690; 84702; 85025; 86140; 87086; 96361; 96374; 96375; 99282; A9270-GY; J2270; J2765; Q9967

== ENCOUNTER 2020-04-14 13:53 | Inpatient (IN) ==
[2020-04-14] MEDS ORDERED: metroNIDAZOLE IV 500 MG/100ML 500 MG/100 ML BAG IVPB ONE (15:16)
[2020-04-14] MEDS ORDERED: NS 0.9% 1000 ml BAG 1,000 ML IV.FLUID IV ONE (15:16)
[2020-04-14] MEDS ORDERED: Cefepime 2 GM in NS 0.9% 50 ML 50 ML IVPB ONE (15:16)
[2020-04-14] MEDS ORDERED: NS 0.9% 50 ML 50 ML ONE (15:34)
[2020-04-14 15:47] LABS: Hematocrit 43 % (35-47); Hemoglobin 14.7 g/dL (12.0-16.0); Mean Corpuscular HGB Conc 34 g/dL (31-36); Mean Corpuscular Hemoglobin 31 pg (27-31); Mean Corpuscular Volume 91 fL (80-97); Mean Platelet Volume 7.7 fL (7.4-10.4); Platelet Count 203 10^3/uL (150-450); Red Blood Count 4.75 10^6 /uL (3.70-4.87); Red Cell Distribution Width 13 % (10-15); White Blood Count 18.9 10^3/uL (3.5-10.8)
[2020-04-14 15:48] LABS: Urine Appearance Cloudy; Urine Bilirubin Negative (Negative); Urine Blood 2+ (Negative); Urine Color Yellow; Urine Glucose Negative (Negative); Urine Ketones Negative (Negative); Urine Nitrite Negative (Negative); Urine Protein 1+(30 mg/dL) (Negative); Urine Specific Gravity 1.006 (1.010-1.030); Urine Urobilinogen Negative (Negative)
[2020-04-14 15:59] LABS: Urine Bacteria 1+ (Absent); Urine Red Blood Cell Trace(0-2/hpf) (Absent); Urine Squamous Epithelial Cell Present (Absent); Urine White Blood Cell 3+(>20/hpf) (Absent)
[2020-04-14] MEDS ORDERED: Vancomycin 1,000 MG - ED ONCE IV ONE (16:00)
[2020-04-14] MEDS ORDERED: Cefepime 2 GM IV - ED ONCE IV ONE (16:00)
[2020-04-14] MEDS ORDERED: Vancomycin 1,000 MG in NS 0.9% 250 ml 250 ML IVPB SCH (16:00)
[2020-04-14 16:04] LABS: ALT 11 U/L (7-52); AST 14 U/L (13-39); Activated Partial Thrombo Time 28.9 seconds (26.0-38.0); Albumin 4.3 g/dL (3.2-5.2); Albumin/Globulin Ratio 1.5 (1-3); Alkaline Phosphatase 53 U/L (34-104); Anion Gap 10 mmol/L (2-11); BUN/Creatinine Ratio 11.2 (8-20); Blood Urea Nitrogen 14 mg/dL (6-24); C Reactive Protein 171.93 mg/L (<8.01); CO2 Carbon Dioxide 24 mmol/L (22-32); Calcium 9.2 mg/dL (8.6-10.3); Chloride 97 mmol/L (101-111); EGFR African American 57.7 (>60); EGFR Non-African American 47.7 (>60); Globulin 2.9 g/dL (2-4); Glucose 107 mg/dL (70-100); INR 1.15 (0.82-1.09); Potassium 4.3 mmol/L (3.5-5.0); Sodium 131 mmol/L (135-145); Total Protein 7.2 g/dL (6.4-8.9)
[2020-04-14 16:06] LABS: Troponin I 0.01 ng/mL (<0.03)
[2020-04-14] MEDS ORDERED: Iodixanol (CONTRAST) 320 MG/ML 100 ML SDV IV ONE (16:07)
[2020-04-14 16:36] LABS: HCG Pregnancy < 0.60 mIU/mL
[2020-04-14 16:47] LABS: ABS Basophils 0.1 10^3/ul (0-0.2); ABS Lymphocytes 1.2 10^3/ul (1.0-4.8); ABS Monocytes 1.6 10^3/ul (0-0.8); ABS Neutrophils 16.1 10^3/ul (1.5-7.7); Eosinophil % 0.1 %; Lymphocyte % 6.3 %
[2020-04-14 17:45] LABS: Erythrocyte Sed Rate 25 mm/Hr (0-19)
[2020-04-14] MEDS: Enoxaparin 40 MG/0.4 ML SYR SUBCUT SCH (21:42)
[2020-04-14] MEDS: Nicotine GUM 4MG FRUIT FLAVOR PO PRN (21:42)
[2020-04-14] MEDS: NS 0.9% 1000 ml BAG 1,000 ML IV SCH (21:43)
[2020-04-14] MEDS: Nicotine PATCH 21 MG/24 HR PATCH TRANSDERM SCH (22:07)
[2020-04-15] MEDS: cefTRIAXone 2 GM ADDV.VIAL 2 GM in NS 0.9% 100 ml BAG 100 ML IV SCH (05:36)
[2020-04-15] MEDS: Nicotine GUM 4MG FRUIT FLAVOR PO PRN ×4 (05:48→21:28)
[2020-04-15] MEDS ORDERED: Gentamicin ADULT per pharmacy 1 NOTE MISC FOLLOW UP PRN (08:48)
[2020-04-15] MEDS ORDERED: NS 0.9% IVPB ONE (09:00)
[2020-04-15] MEDS ORDERED: GENTAMICIN ADULT IVPB ONE (09:00)
[2020-04-15] MEDS: Nicotine PATCH 21 MG/24 HR PATCH TRANSDERM SCH (09:16)
[2020-04-15] MEDS: Ondansetron 4 mg VIAL 2 MG/ML 2 ml VIAL IV PRN ×2 (09:16→21:45)
[2020-04-15 09:19] LABS: ABS Basophils 0.1 10^3/ul (0-0.2); ABS Eosinophils 0.2 10^3/ul (0-0.6); ABS Monocytes 1.3 10^3/ul (0-0.8); ABS Neutrophils 13.5 10^3/ul (1.5-7.7); Eosinophil % 1.1 %; Hematocrit 38 % (35-47); Hemoglobin 12.8 g/dL (12.0-16.0); Lymphocyte % 11.7 %; Mean Corpuscular HGB Conc 34 g/dL (31-36); Mean Corpuscular Hemoglobin 31 pg (27-31); Mean Corpuscular Volume 92 fL (80-97); Mean Platelet Volume 7.9 fL (7.4-10.4); Nucleated Red Blood Cells % 0.1; Platelet Count 141 10^3/uL (150-450); Red Blood Count 4.13 10^6 /uL (3.70-4.87); Red Cell Distribution Width 13 % (10-15); White Blood Count 17.1 10^3/uL (3.5-10.8)
[2020-04-15] MEDS: NS 0.9% 1000 ml BAG 1,000 ML IV SCH (09:20)
[2020-04-15 09:41] LABS: BUN/Creatinine Ratio 12.6 (8-20); Calcium 7.9 mg/dL (8.6-10.3); EGFR African American 56.7 (>60); EGFR Non-African American 46.8 (>60); Magnesium 1.9 mg/dL (1.9-2.7); Potassium 3.6 mmol/L (3.5-5.0)
[2020-04-15] MEDS ORDERED: Potassium Chlor 20 meq TAB.ER PO ONE (11:31)
[2020-04-15] MEDS: Enoxaparin 40 MG/0.4 ML SYR SUBCUT SCH (17:19)
[2020-04-15] MEDS: Gentamicin ADULT 100 MG in NS 0.9% 100 ml BAG 100 ML IVPB SCH (21:53)
[2020-04-16] MEDS: NS 0.9% 1000 ml BAG 1,000 ML IV SCH (05:48)
[2020-04-16 08:33] LABS: ABS Eosinophils 0.2 10^3/ul (0-0.6); ABS Lymphocytes 1.5 10^3/ul (1.0-4.8); ABS Monocytes 0.9 10^3/ul (0-0.8); ABS Neutrophils 6.2 10^3/ul (1.5-7.7); Eosinophil % 1.8 %; Hematocrit 33 % (35-47); Hemoglobin 11.1 g/dL (12.0-16.0); Lymphocyte % 16.6 %; Mean Corpuscular HGB Conc 34 g/dL (31-36); Mean Corpuscular Hemoglobin 32 pg (27-31); Mean Corpuscular Volume 93 fL (80-97); Mean Platelet Volume 8.4 fL (7.4-10.4); Platelet Count 114 10^3/uL (150-450); Red Blood Count 3.53 10^6 /uL (3.70-4.87); Red Cell Distribution Width 13 % (10-15); White Blood Count 8.8 10^3/uL (3.5-10.8)
[2020-04-16 08:53] LABS: Calcium 7.9 mg/dL (8.6-10.3); Potassium 4.7 mmol/L (3.5-5.0)
[2020-04-16 08:58] LABS: BUN/Creatinine Ratio 11.9 (8-20); EGFR African American 73.8 (>60)
[2020-04-16 08:59] LABS: EGFR African American 72.2 (>60); EGFR Non-African American 59.7 (>60)
[2020-04-16] MEDS: Gentamicin ADULT 100 MG in NS 0.9% 100 ml BAG 100 ML IVPB SCH (09:42)
[2020-04-16] MEDS: Nicotine PATCH 21 MG/24 HR PATCH TRANSDERM SCH (09:43)
[2020-04-16] MEDS: Ondansetron 4 mg VIAL 2 MG/ML 2 ml VIAL IV PRN (09:53)
[2020-04-16] MEDS: cefTRIAXone 2 GM ADDV.VIAL 2 GM in NS 0.9% 100 ml BAG 100 ML IV SCH (09:56)
[2020-04-16] MEDS: guaiFENesin 100 mg/5 ml LIQ unit dose cup PO PRN (13:35)
[2020-04-16] MEDS: Enoxaparin 40 MG/0.4 ML SYR SUBCUT SCH (18:06)
[2020-04-16] MEDS: Nicotine GUM 4MG FRUIT FLAVOR PO PRN (21:46)
[2020-04-17] MEDS: guaiFENesin 100 mg/5 ml LIQ unit dose cup PO PRN (02:12)
[2020-04-17 06:31] LABS: ABS Basophils 0.1 10^3/ul (0-0.2); ABS Eosinophils 0.2 10^3/ul (0-0.6); ABS Lymphocytes 1.7 10^3/ul (1.0-4.8); ABS Monocytes 0.6 10^3/ul (0-0.8); ABS Neutrophils 5.2 10^3/ul (1.5-7.7); Eosinophil % 2.2 %; Hematocrit 32 % (35-47); Lymphocyte % 22.1 %; Mean Corpuscular HGB Conc 34 g/dL (31-36); Mean Corpuscular Hemoglobin 31 pg (27-31); Mean Corpuscular Volume 92 fL (80-97); Mean Platelet Volume 8.5 fL (7.4-10.4); Platelet Count 132 10^3/uL (150-450); Red Blood Count 3.51 10^6 /uL (3.70-4.87); Red Cell Distribution Width 13 % (10-15); White Blood Count 7.8 10^3/uL (3.5-10.8)
[2020-04-17 06:48] LABS: Calcium 8.1 mg/dL (8.6-10.3); EGFR African American 74.7 (>60); EGFR Non-African American 61.7 (>60)
[2020-04-17] MEDS ORDERED: Gentamicin PEAK LEVEL FOLLOW UP ONE (10:00)
[2020-04-17 10:01] LABS: EGFR African American 76.4 (>60); EGFR Non-African American 63.2 (>60)
[2020-04-17] MEDS: Nicotine GUM 4MG FRUIT FLAVOR PO PRN (10:01)
[2020-04-17] MEDS: cefTRIAXone 2 GM ADDV.VIAL 2 GM in NS 0.9% 100 ml BAG 100 ML IV SCH (10:04)
[2020-04-17] MEDS: Nicotine PATCH 21 MG/24 HR PATCH TRANSDERM SCH (10:35)
[2020-04-17 11:25] VITALS: BP 172/100
== END 2020-04-17 13:15 | disposition home or self-care (01) | DRG 872 ==
LOC: ED 13:53 → MED 13:53 → OBSVTOIN 20:19
PROVIDERS: ADMIT Student in an Organized Health Care Education/Training Program; ATTEND Internal Medicine